=== PATIENT | male | born 1995 | race Caucasian/White ===

== ENCOUNTER 2017-05-23 20:15 | Emergency (ER) | payer BC, OTHER ==
[2017-05-23 20:19] VITALS: BP 121/58; PULSE 61; RESP 18; TEMP 98.2; O2SAT 95
[2017-05-23] MEDS ORDERED: SULFAMETHOX/TMP 800/160 MG 1 TAB PO ONE (21:34)
--- NOTE | 2017-05-23 21:38 | EDPHY ---
H & P Stated Complaint: right eye swelling since this morning Time Seen by Provider: 05/23/17 21:31 HPI/ROS: CHIEF COMPLAINT: Eye swelling HISTORY OF PRESENT ILLNESS: The patient is a 22-year-old man who comes to the emergency department complaining of swelling in his lower eyelid of the right eye. It began this morning and got worse throughout the day. He has been lying in bed all day doing homework. He has a large acne pimple to his right upper cheek. This seems to be the nidus. He states that he tried draining it yesterday. No vision changes. No trauma. REVIEW OF SYSTEMS: Constitutional: denies: chills, fever, recent illness, recent injury EENTM: See HPI denies: blurred vision, double vision, nose congestion Respiratory: denies: cough, shortness of breath Cardiac: denies: chest pain, irregular heart rate, lightheadedness, palpitations Gastrointestinal/Abdominal: denies: abdominal pain, diarrhea, nausea, vomiting, blood streaked stools Genitourinary: denies: dysuria, frequency, hematuria, pain Musculoskeletal: denies: joint pain, muscle pain Skin: denies: lesions, rash, jaundice, bruising Neurological: denies: headache, numbness, paresthesia, tingling, dizziness, weakness Hematologic/Lymphatic: denies: blood clots, easy bleeding, easy bruising Immunologic/allergic: denies: HIV/AIDS, transplant EXAM: GENERAL: Well-appearing, well-nourished and in no acute distress. HEAD: Atraumatic, normocephalic. EYES: Pupils equal round and reactive to light, extraocular movements intact, sclera anicteric, conjunctiva are normal. ENT: See HPI, edema in lower eyelid. No erythema. Pimple to right upper cheek , slightly firm. Not fluctuant. TMs normal, nares patent, oropharynx clear without exudates. Moist mucous membranes. NECK: Normal range of motion, supple without lymphadenopathy or JVD. LUNGS: Breath sounds clear to auscultation bilaterally and equal. No wheezes rales or rhonchi. HEART: Regular rate and rhythm without murmurs, rubs or gallops. ABDOMEN: Soft, nontender, normoactive bowel sounds. No guarding, no rebound. No masses appreciated. BACK: No CVA tenderness, no spinal tenderness, step-offs or deformities EXTREMITIES: Normal range of motion, no pitting or edema. No clubbing or cyanosis. NEUROLOGICAL: Cranial nerves II through XII grossly intact. Normal speech, normal gait. 5/5 strength, normal movement in all extremities, normal sensation PSYCH: Normal mood, normal affect. SKIN: Warm, dry, normal turgor, no visible rashes or lesions. Source: Patient Exam Limitations: No limitations - Personal History Current Tetanus/Diphtheria Vaccine: Yes Current Tetanus Diphtheria and Acellular Pertussis (TDAP): Yes - Medical/Surgical History Hx Asthma: No Hx Chronic Respiratory Disease: No Hx Diabetes: No Hx Cardiac Disease: No Hx Renal Disease: No Hx Cirrhosis: No Hx Alcoholism: No Hx HIV/AIDS: No Hx Splenectomy or Spleen Trauma: No Other PMH: denies - Family History Significant Family History: No pertinent family hx - Social History Smoking Status: Never smoked Alcohol Use: Sober Drug Use: None Constitutional: Initial Vital Signs Temperature (C) 36.8 C 05/23/17 20:16 Heart Rate 61 05/23/17 20:16 Respiratory Rate 18 05/23/17 20:16 Blood Pressure 121/58 H 05/23/17 20:16 O2 Sat (%) 95 05/23/17 20:16 O2 Delivery Mode Room Air Allergies/Adverse Reactions: No Known Allergies Allergy (Unverified 05/23/17 20:19) Home Medications: Medication Instructions Recorded Sulfamethox/Tmp 800/160 mg 1 tab PO BID #14 tab 05/23/17 [Bactrim Ds] Medical Decision Making ED Course/Re-evaluation: The patient has acting to his cheek that is causing some 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 Encouraged him to stay upright as much as possible as well as to ice his eyelid. I will start him on Bactrim for his acne infection. No drainable abscess at this time. I do not think that he has any cellulitis to his eyelid or periorbital region. The patient understands and agrees with this plan. He declines further workup or testing at this time. Differential Diagnosis: Partial list of the Differential diagnosis considered include but were not limited to; acne, edema and although unlikely based on the history and physical exam, I also considered cellulitis, abscess,. I discussed these differential diagnoses and the plan with the patient as well as the usual and expected course. The patient understands that the diagnosis is provisional and that in medicine we are not always correct and that further workup is often warranted. Usual and customary warnings were given. All of the patient's questions were answered. The patient was instructed to return to the emergency department should the symptoms at all worsen or return, otherwise to followup with the physician as we discussed. - Data Points Medications Given: Discontinued Medications Trimethoprim/Sulfamethoxazole (Bactrim Ds) 1 ea PO EDNOW ONE PRN Reason: Protocol Stop: 05/23/17 21:35 Last Admin: 05/23/17 21:43 Dose: 1 ea Departure - Departure Disposition: Home, Routine, Self-Care Clinical Impression: Acne Qualifiers: Acne type: unspecified acne Qualified Code(s): L70.9 - Acne, unspecified Edema Qualifiers: Edema type: localized Qualified Code(s): R60.0 - Localized edema Condition: Fair Instructions: Acne (ED), Edema (ED) Additional Instructions: Do not drink alcohol while taking this antibiotic. Referrals: NONE *PRIMARY CARE P,. [Primary Care Provider] - As per Instructions Prescriptions: Sulfamethox/Tmp 800/160 mg [Bactrim Ds] 1 tab PO BID #14 tab
== END 2017-05-23 21:55 | disposition home or self-care (01) ==
DX: H02.842 Edema of right lower eyelid (principal); L70.9 Acne, unspecified